=== PATIENT | male | born 1945 | race Hispanic/Latino ===

== ENCOUNTER 2019-11-22 16:08 | Observation (INO) | payer OTHER, SELFPAY ==
[2019-11-22] VITALS (7 sets, daily range): BP systolic 123–157; BP diastolic 74–83; PULSE 68–106; RESP 14–18; TEMP 36.9; O2SAT 94–99; BMI 23.6
--- NOTE | ~2019-11-22 | XR_ITS ---
EXAMINATION: XR chest 1V portable DATE: 11/22/2019 16:43 INDICATION: Chest pain. TECHNIQUE: A single frontal view of the chest was obtained. COMPARISON: None. FINDINGS: The chest demonstrates clear lungs without pneumonia, pleural effusion, or pneumothorax. Th e heart size is normal. IMPRESSION: 1. No acute cardiopulmonary disease. Reviewed, dictated and finalized at location A.
--- NOTE | 2019-11-22 16:32 | ED.GENADULT ---
HPI - General Adult General Chief complaint: Chest Pain Stated complaint: persistent chest pain Time Seen by Provider: 11/22/19 16:17 Source: patient Mode of arrival: ambulatory Limitations: no limitations History of Present Illness HPI narrative: Patient is a 74-year-old male who presents with chest pain that began this morning has become persistent noting that he had intermittent chest pain over the last 4 days that will come and go throughout the day nothing making it worse. Patient denies radiation of pain or dyspnea or URI symptoms or other complaints. Patient presents per private vehicle in no distress. Related Data Home Medications Medication Instructions Recorded Confirmed aspirin 11/22/19 lisinopril 11/22/19 sitagliptin [Januvia] mg 11/22/19 Allergies Allergy/AdvReac Type Severity Reaction Status Date / Time No Known Allergies Allergy Verified 11/22/19 16:22 Review of Systems Review of Systems: All systems reviewed & are unremarkable except as noted in HPI and below PMFSH Past Medical History Medical History (Updated 11/22/19 @ 21:09 by Delvis Ac PA-C) Diabetes mellitus Hypertension Surgical History Surgical History H/O abdominal surgery Social History Social History (Updated 11/22/19 @ 16:34 by Delvis Ac PA-C) Smoking status: Never smoker Gender identity (if verbalized by the patient): Male Exam Narrative: Exam Narrative: GENERAL: Well-appearing, well-nourished, and in no acute distress. HEAD: Normocephalic, atraumatic. EYES: PERRLA and EOMI. ENT: Nares clear, no rhinorrhea or epistaxis. Mucous membranes moist. Oropharynx without tonsillar hypertrophy exudate or other lesions. NECK: Supple. No adenopathy or masses. CHEST: Clear to auscultation. No respiratory distress. No wheezes rales or rhonchi HEART: Regular rate and rhythm. No murmur heard. Normal peripheral pulses. ABDOMEN: Soft, nontender, nondistended EXTREMITIES: Normal range of motion. No edema. SKIN: Warm, dry, no rash. NEURO: No focal deficits. Alert and oriented x3. Cranial nerves II through XII grossly intact PSYCH: Normal mood and affect. Course Course Emergency Course: Discussed case with cardiology and hospitalist service who will bring the patient in hospital for trending of troponins. Cardiology does not recommend any further medications at this time for the patient's chest pain. Cardiology does not recommend any anticoagulation at this time Consultations Consultation #1: Discussed with cardiology and hospitalist service Date: 11/22/19 Vital Signs Vital signs: Vital Signs Pulse Rate 105 H 11/22/19 16:14 Respiratory Rate 14 11/22/19 16:14 Blood Pressure 157/83 H 11/22/19 16:14 Pulse Oximetry 96 11/22/19 16:14 Pulse Rate 76 11/22/19 20:32 Respiratory Rate 16 11/22/19 20:32 Blood Pressure 142/76 H 11/22/19 20:32 Pulse Oximetry 95 11/22/19 20:32 Medical Decision Making MDM Narrative Medical decision making narrative: Patient in the room in no distress aware of case findings treatment plan and diagnosis agreeing to stay in hospital continue to have chest pain decided medications patient will be placed in the IMU with cardiology consult admitted to the hospitalist service Vital Signs Vital Signs: Vital Signs Pulse Rate 105 H 11/22/19 16:14 Respiratory Rate 14 11/22/19 16:14 Blood Pressure 157/83 H 11/22/19 16:14 Pulse Oximetry 96 11/22/19 16:14 Pulse Rate 76 11/22/19 20:32 Respiratory Rate 16 11/22/19 20:32 Blood Pressure 142/76 H 11/22/19 20:32 Pulse Oximetry 95 11/22/19 20:32 Lab Data Result diagrams: 11/22/19 16:35 11/22/19 16:35 Labs: Lab Results 11/22/19 11/22/19 11/22/19 Range/Units 16:35 16:35 16:35 WBC 6.2 (4.5-10.0) K/mm3 RBC 4.97 (4.6-6.20) M/mm3 Hgb 13.4 L (14.0-18.0) g/dL Hct 42.0 (42.0-52.0)
--- NOTE | 2019-11-22 16:35 | ECG_ITS ---
Measurements Intervals [place] Rate: 69 P: 31 OR: 182 QRS: 259 QRSD: 101 T: -2 QT: 489 QTc: 524 Interpretive Statements SINUS RHYTHM EARLY PRECORDIAL R/S TRANSITION BORDERLINE T WAVE ABNORMALITY- INFERIOR LEADS BORDERLINE ECG Electronically Signed On 11-22-2019 18:52:32 CDT by Jose Braswell D.O.
[2019-11-22 16:41] LABS: Basophils Percent Auto 0.5 % (0.2-1.2); Eosinophils Absolute Auto 0.1 K/mm3 (0-0.3); Eosinophils Percent Auto 1.1 % (0-4.4); Hemoglobin 13.4 g/dL (14.0-18.0); Immature Granulocyte Absolute 0.03 K/mm3 (0.00-0.031); Immature Granulocyte Percent A 0.5 % (0-0.5); Lymphocytes Absolute Auto 1.33 K/mm3 (0.9-3.2); Lymphocytes Percent Auto 21.5 % (18.3-44.2); Mean Corpuscular HGB Conc 31.9 g/dl (32-36); Mean Corpuscular Volume 84.5 fl (80-100); Mean Platelet Volume 10.1 fl (7.4-10.4); Monocytes Absolute Auto 0.5 K/mm3 (0.1-0.6); Monocytes Percent Auto 8.6 % (2.6-8.5); Neutrophils Absolute Auto 4.2 K/mm3 (1.3-6.7); Neutrophils Percent Auto 67.8 % (45.5-73.1); Platelet Count Result 243 k/mm3 (150-375); Red Blood Count 4.97 M/mm3 (4.6-6.20); Red Cell Distribution Width 12.7 % (11.5-14.5); White Blood Count 6.2 K/mm3 (4.5-10.0)
[2019-11-22] MEDS: ASPIRIN 81 MG CHEWABLE TABLET 324 MG PO (16:50)
[2019-11-22 16:51] LABS: Prothrombin Time 12.8 Seconds (11.1-14.7)
[2019-11-22] MEDS: NITROGLYCERIN SL 0.4 MG TABLET SUBLINGUAL ×3 (16:51→17:37)
[2019-11-22 16:52] LABS: Partial Thromboplastin Time 25.8 SECONDS (22.3-36.8)
[2019-11-22 16:53] LABS: Alanine Aminotransferase 20 U/L (4-50); Albumin Level 4.5 g/dL (3.5-5.1); Alkaline Phosphatase 60 U/L (38-126); Aspartate Amino Transferase 30 U/L (17-59); Bilirubin,Total 0.4 mg/dL (0.2-1.3); Blood Urea Nitrogen 18 mg/dL (9-20); Calcium 9.5 mg/dL (8.4-10.2); Carbon Dioxide 29 mmol/L (22-30); Chloride 100 mmol/L (98-107); Estimated CRCL calculation 54 ml/min; Estimated Glomerular Filt Rate > 60; Glucose 146 mg/dL (75-110); Lipase 66 U/L (23-300); Potassium 3.7 mmol/L (3.4-5.0); Sodium 134 mmol/L (137-145)
[2019-11-22 16:54] LABS: D Dimer 0.35 ug/mL (<0.48)
[2019-11-22 17:05] LABS: NT Pro B Type Natriuretic Pept 31 PG/ML (5-100); Troponin I < 0.012 ng/mL (0.000-0.034)
--- NOTE | 2019-11-22 17:37 | PC.NURSE ---
nitro #3 sublingual per provider request. upper chest pressure remains rated at 7. vitals stable.
[2019-11-22] MEDS: KETOROLAC 30 MG/ML VIAL (*BKC) (18:05)
[2019-11-22] MEDS: MORPHINE SULFATE 2 MG/ML INJ IV PUSH (19:34)
[2019-11-22 19:53] LABS: Troponin I < 0.012 ng/mL (0.000-0.034)
--- NOTE | 2019-11-22 19:57 | ECG_ITS ---
Measurements Intervals [place] Rate: 78 P: 19 IL: 193 QRS: -11 QRSD: 99 T: 14 QT: 364 QTc: 415 Interpretive Statements SINUS RHYTHM EARLY PRECORDIAL R/S TRANSITION BORDERLINE ECG Electronically Signed On 11-23-2019 7:05:21 CDT by Jose Braswell D.O.
[2019-11-22 21:23] LABS: Cholesterol 174 mg/dL (0-200); HDL Direct 70 mg/dL; Triglycerides 57 mg/dL (<150)
[2019-11-22 21:35] LABS: LDL Cholesterol Direct 79 mg/dL
--- NOTE | 2019-11-22 22:07 | PC.NURSE ---
This patient, David Neff, was admitted to IMU Room 201-01. Patient/family oriented to hospital policies and general routines including ID bracelet, bed and alarms, visiting hours, pain management, procedures, bathroom and other care routines, personal items, smoking policy, room service/diet, and visiting hours. Valuables list has been completed. Information on how to activate the Rapid Response Team has been discussed. Patient/Family are encouraged to report perceived risks to care and to ask questions if they do not understand what they are told or what they should do.
[2019-11-22] MEDS: MAG HYDROX/AL HYDROX/SIMETH 30 ML UDC PO (22:12)
[2019-11-22 23:52] LABS: Troponin I < 0.012 ng/mL (0.000-0.034)
[2019-11-23] VITALS: BP 134/62; PULSE 61; PULSE 67; RESP 18; TEMP 36.6; O2SAT 96
[2019-11-23 00:02] LABS: Glucose Point of Care 113 (65-105)
[2019-11-23 01:57] VITALS: PULSE 63
[2019-11-23 03:52] VITALS: PULSE 64
[2019-11-23 04:00] VITALS: BP 121/61; PULSE 62; RESP 18; TEMP 36.7; O2SAT 94
--- NOTE | 2019-11-23 04:10 | PM.IMHP ---
H&P: HPI History of Present Illness Chief complaint: chest pain Narrative: SHORT-STAY SUMMARY Date and time of patient contact: 11/23/2019 at 4:45 a.m. David Neff is a 74 year old male with a past medical history of GERD, hiatal hernia, prior stomach and esophageal surgery, hypertension and type 2 diabetes mellitus who presented to the ER with complaint of chest pain. The patient reports that the pain is pressure like in nature and intermittent. The intensity is sometimes is severe. He has tried taking ibuprofen at home with some relief of his symptoms. However when his friend told him to avoid ibuprofen due to the current viral crisis he did switch to Tylenol. However, his pain seems to be becoming more frequent and more persistent. In the ER he received a dose of Toradol without relief in his symptoms. He denies any shortness of breath or palpitations. His chest pain seems to be worse right after he has eaten and specially some spicy food or tomato sauce. His also noticed the pain is worse when he is drinking coffee. The pain was relieved after he received some Maalox when he arrived to the IMU. In the ER the patient received 3 doses of nitro without relief in his symptoms. He received 1 dose of morphine in the ER with relief of his symptoms. He had similar symptoms to this last year and had a stress test at an outside Hospital that was negative. He also had a EGD last year as well. His gusset maker is Dr. Sevilla in [place]. At that time he was told to take Mylanta as needed. He reports that his hard to carry a bottle of Mylanta around with him. He reports that he has a sensitive gag reflex and will get nauseated easily. He denies any diaphoresis. He has not had any dyspnea on exertion or orthopnea. He has not had any cough or congestion. He came to the ER because the Internet results about COVID-19 said that persistent pressure on her test could be due to infection. He denies any fevers or chills. He was given the option to stay at home instead of going to work since he is a high risk population. He decided a couple of days ago to stay at home. The patient drinks about 6 cups of Instant coffee a day. Review of Systems Review of Systems: Narrative: 12 systems were reviewed with pertinent positives and negatives per HPI. Except as documented in the HPI, all other systems were reviewed and are negative. [facility] Past Medical History Medical History (Updated 11/23/19 @ 05:37 by Smitha Zuleta DO) Diabetes mellitus GERD (gastroesophageal reflux disease) Hearing loss Hiatal hernia Hyperlipidemia Hypertension TIA (transient ischemic attack) Surgical History Surgical History (Updated 11/23/19 @ 05:30 by Smitha Zuleta DO) H/O abdominal surgery Repair of ruptured stomach and esophagus due to trauma History of appendectomy History of arthroscopy of right knee History of bilateral cataract extraction History of esophagogastroduodenoscopy 2019 History of prostate surgery Family History Family History Grandparent No problems noted. Father Diabetes mellitus Hypertension Sibling Diabetes mellitus Lung cancer Hypertension Hypercholesterolemia Mother Hypertension Hypercholesterolemia Social History Social History (Updated 11/23/19 @ 05:28 by Smitha Zuleta DO) Social History: Primary care physician: Dr. Jameson Renee Code status: Full code Smoking packs per day: 1 Smoking cigarettes per day: 20.0 Years smoked: 5 Smoking pack-years: 5.00 Smoking status: Former smoker Tobacco type: cigarettes Alcohol intake: current Alcohol use details: The patient will drink an occasional glass a wine maybe once a month. Substance use: never Substance use type: does not use Living arrangements: with family Additional living arrangements comments: He lives at home with his of approximately 40 years. Add
[2019-11-23 06:00] VITALS: PULSE 62
[2019-11-23 08:00] VITALS: BP 123/72; PULSE 62; PULSE 66; RESP 16; TEMP 36.4; O2SAT 97
[2019-11-23] MEDS: ASPIRIN 81 MG ENTERIC TABLET PO (09:03)
[2019-11-23] MEDS: lisinopriL 5 MG TABLET PO (09:03)
== END 2019-11-23 09:40 | disposition home or self-care (01) ==
LOC: ANHED 21:09 → ANHIMU 21:14
PROVIDERS: Emergency Medicine Emergency Medical Services; Admitting Provider Internal Medicine; Emergency Provider Emergency Medicine; PCP Internal Medicine; Visit Provider Internal Medicine
DX: R07.89 Other chest pain (principal); K21.9 Gastro-esophageal reflux disease without esophagitis; K44.9 Diaphragmatic hernia without obstruction or gangrene; E11.9 Type 2 diabetes mellitus without complications; Z86.73 Personal history of transient ischemic attack (TIA), and cerebral infarction without residual deficits
CPT/HCPCS: 36415; 71045; 80053; 80061; 83690; 83880; 84484; 85025; 85380; 85610; 85730; 93005; 96374; 99285; A9270; G0378; J1885; J2270

== ENCOUNTER 2022-09-28 13:44 | Emergency (ER) | payer MEDICARE, SELFPAY ==
--- NOTE | 2022-09-28 13:48 | ED.URI ---
HPI - URI/Sore Throat General Chief Complaint: Ear Stated Complaint: ear pain Time Seen by Provider: 09/28/22 13:58 Source: patient, RN notes reviewed and old records reviewed Mode of arrival: ambulatory Limitations: no limitations History of Present Illness HPI Narrative: 77-year-old male presents to the [facility] with complaints of left ear pain, TMJ areea for several weeks. Has a history of cerumen impactions which he used to go to the [facility]'s clinics and have cleaned out. Was told by an ear nose and throat doctor to use ear wax remover which she does not use. Grains teeth at night and has a bite guard which he does not always wear Related Data Home Medications Medication Instructions Recorded Confirmed aspirin 81 mg tablet,delayed 81 mg PO DAILY 11/22/19 09/28/22 release lisinopril 5 mg tablet 5 mg PO DAILY 11/22/19 09/28/22 sitagliptin phosphate 100 mg 100 mg PO DAILY 11/22/19 09/28/22 tablet (Januvia) metformin 500 mg tablet 500 mg BID 09/28/22 09/28/22 Allergies Allergy/AdvReac Type Severity Reaction Status Date / Time No Known Allergies Allergy Verified 09/28/22 14:05 Review of Systems Review of Systems: All systems reviewed & are unremarkable except as noted in HPI and below Constitutional: Constitutional: Reports no additional constitutional complaints Eyes: Eyes: Reports no additional eye complaints ENT: Reports as per HPI Cardiovascular: Cardiovascular: Reports no additional cardiovascular complaints, Denies chest pain and Denies dyspnea Respiratory: Respiratory: Reports no additional respiratory complaints, Denies chest congestion, Denies cough and Denies dyspnea Gastrointestinal: Gastrointestinal: Reports no additional gastrointestinal complaints, Denies abdominal pain, Denies nausea and Denies vomiting Musculoskeletal: Musculoskeletal: Reports no additional musculoskeletal complaints Integumentary/Breasts: Skin/Breast: Reports system reviewed and no additional complaints, except as docu Neurologic: Reports system reviewed and no additional complaints, except as documented Psychiatric: Psychiatric: Reports no additional psychiatric complaints Allergic/Immunologic: Allergic/Immunologic: Reports no additional allergic/immunologic complaints [facility] Past Medical History Medical History (Updated 09/28/22 @ 19:31 by Debby Mariscal APRN) Diabetes mellitus GERD (gastroesophageal reflux disease) Hearing loss Hiatal hernia Hyperlipidemia Hypertension TIA (transient ischemic attack) Surgical History Surgical History H/O abdominal surgery Repair of ruptured stomach and esophagus due to trauma History of appendectomy History of arthroscopy of right knee History of bilateral cataract extraction History of esophagogastroduodenoscopy 2019 History of prostate surgery Family History Family History Grandparent No problems noted. Father Diabetes mellitus Hypertension Sibling Diabetes mellitus Lung cancer Hypertension Hypercholesterolemia Mother Hypertension Hypercholesterolemia Social History Social History Social History: Primary care physician: Dr. Jameson Renee Code status: Full code Smoking packs per day: 1 Smoking cigarettes per day: 20.0 Years smoked: 5 Smoking pack-years: 5.00 Smoking status: Former smoker Tobacco type: cigarettes Alcohol intake: current Alcohol use details: The patient will drink an occasional glass a wine maybe once a month. Substance use: never Substance use type: does not use Living arrangements: with family Additional living arrangements comments: He lives at home with his of approximately 40 years. 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 Gender identity (if verbalized by the patient): Male Courtney
[2022-09-28 13:52] VITALS: BP 141/64; PULSE 84; RESP 16; TEMP 36.4; O2SAT 100
== END 2022-09-28 14:30 | disposition home or self-care (01) ==
PROVIDERS: Emergency Provider Nurse Practitioner; PCP Internal Medicine
DX: M26.622 Arthralgia of left temporomandibular joint (principal); H61.23 Impacted cerumen, bilateral; Z87.891 Personal history of nicotine dependence; E11.9 Type 2 diabetes mellitus without complications; K21.9 Gastro-esophageal reflux disease without esophagitis; E78.5 Hyperlipidemia, unspecified; I10 Essential (primary) hypertension; Z86.73 Personal history of transient ischemic attack (TIA), and cerebral infarction without residual deficits; Z98.42 Cataract extraction status, left eye; Z98.41 Cataract extraction status, right eye
CPT/HCPCS: 69209; 99212; G0463